=== PATIENT | male | born 2000 | race Caucasian/White ===

== ENCOUNTER 2018-12-23 12:02 | Emergency (ER) | payer OTHER ==
[2018-12-23 13:02] VITALS: BP 134/72
--- NOTE | 2018-12-23 13:31 | UC ---
Throat Pain/Nasal Javier HPI - HPI Summary HPI Summary: Pt with sore throat x 3 days. [id number] sinus pressure, post nasal drip, cough, fatigue tactile temp ears feel plugged OTC meds taken with little improvement no strep exposure known. no travel medications reviewed - History of Current Complaint Chief Complaint: UCGeneralIllness Stated Complaint: SORE THROAT Time Seen by Provider: 12/23/18 13:19 Hx Obtained From: Patient Onset/Duration: Gradual Onset Severity: Moderate Pain Intensity: 6 Pain Scale Used: 0-10 Numeric - Allergies/Home Medications Allergies/Adverse Reactions: Allergies Allergy/AdvReac Type Severity Reaction Status Date / Time No Known Allergies Allergy Verified 12/23/18 13:02 Home Medications: Home Medications Ibuprofen TAB* [Advil TAB*] 2 tab PO ONCE 12/23/18 [History Confirmed 12/23/18] PMH/Surg Hx/FS Hx/Imm Hx Previously Healthy: Yes - Surgical History Surgical History: None - Family History Known Family History: Positive: Non-Contributory - Social History Occupation: Student Lives: With Family Alcohol Use: Occasionally Substance Use Type: None Smoking Status (MU): Never Smoked Tobacco Have You Smoked in the Last Year: No Review of Systems All Other Systems Reviewed And Are Negative: Yes Constitutional: Positive: Fever - tactile ENT: Positive: Sore Throat, Ear Ache, Nasal Discharge, Sinus Congestion, Sinus Pain/Tenderness Respiratory: Positive: Cough Cardiovascular: Positive: Negative Gastrointestinal: Positive: Negative Physical Exam - Summary Physical Exam Summary: Vital Signs Reviewed: Yes A+Ox3, no distress Eyes: Conjunctiva Clear, ROSA M. EOM intact and full ENT: Hearing grossly normal TM x 2 obscurred with cerumen, turbinates inflammed and boggy, thick PND, + TTP max sinuses b/l mmoist, uvula midline, no exudate, + erythema Neck: Positive: Supple Respiratory: Positive: No respiratory distress, No accessory muscle use + CTA throughout no w/r Cardiovascular: RRR nl s1, s2 no m/r CBT <2 sec abd soft + BS nt/nd no guarding, no distension Musculoskeletal Exam: ALVARADO x 4 without difficulty Strength Intact, ROM Intact Neurological: Positive: Alert, + sensation throughout Psychological: Positive: Normal Response To manager hospitality Skin: Positive: no rash, no ecchymosis Triage Information Reviewed: Yes Vital Signs: Initial Vital Signs Temp 98.3 F 09/20/19 12:58 Pulse 65 12/23/18 12:58 Resp 16 12/23/18 12:58 BP 134/72 12/23/18 12:58 Pulse Ox 100 12/23/18 12:58 Throat Pain/Nasal Course/Dx - Course Course Of Treatment: PT presents with progressive sore throat throat, sinus congestion, PND . tactile temps On exam, VSS Exam c/w rhinosinusitis strep neg will irrigate ears secretion precautions flonase decongestant - Differential Dx/Diagnosis Provider Diagnosis: Rhinosinusitis, Pharyngitis, Cerumen impaction Discharge ED - Sign-Out/Discharge Documenting (check all that apply): Patient Departure All imaging exams completed and their final reports reviewed: No Studies - Discharge Plan Condition: Stable Disposition: HOME Prescriptions: Amoxicillin/Clavulanate TAB* [Augmentin TAB 875*] 875 mg PO BID #20 tab Carbamide Peroxide 6.5% OTIC* [DEBROX 6.5% Otic*] 3 drop BOTH EARS BID #1 bottle Fluticasone NASAL SPRAY 50MCG* [Flonase NASAL SPRAY 50MCG*] 2 spray BOTH NARES DAILY #1 btl Patient Education Materials: Pharyngitis (ED), Cerumen Impaction (ED), Rhinosinusitis (ED) Referrals: No Primary Care Phys,NOPCP [Primary Care Provider] - MICHELLE SUMMERS [[employer], [employer], OTHER] - Additional Instructions: - Take antibiotics exactly as prescribed until gone -Use nasal spray as instructred - Okay to take over the counter decongestant (Claritin-D, Michelle-D, Zyrtec-D) -Stay well hydrated - avoid excess caffeine and all alcohol - Eat regular, healthy meals -These infections are spread by oral secretions. Do not share eating or drinking utensils. Frequent hand washing is important. Clean items that may get your secretions on them such as cell phones, ipads, computer mouse, television remotes. Once you have been on antbiotics for 2 days, change your pillowcase and your toothbrush -For your ears- apply drops to both ears 2 times a day for 10 days- contact the [facility] [place] for ear flushing appointment following this -Contact your doctor to arrange a follow-up appointment this week. Call your doctor, return here or go to the emergency department with any questions or concerns - Billing Disposition and Condition Condition: STABLE Disposition: Home
== END 2018-12-23 14:20 | disposition home or self-care (01) ==
LOC: UCCORT 12:02
DX: J32.9 Chronic sinusitis, unspecified (principal); J02.9 Acute pharyngitis, unspecified; H61.23 Impacted cerumen, bilateral
CPT/HCPCS: 87651; 99202; G0463